=== PATIENT | male | born 1945 | race African-American/Black ===

== ENCOUNTER 2018-02-03 15:49 | Emergency (ER) | payer MEDICARE, MEDICAID ==
[~2018-02-03] VITALS: Ht 170.2 cm; Wt 93.0 kg
[~2018-02-03 15:49] MED LIST: ACET1TAB14 PO; ALBU90AE IH; ALLO100T PO; ASPI-1159 PO; CARV3.1242 PO; CLOP75TA33 PO; COLC0.6T66 PO; DIGO125T82 PO; FURO40TA5 PO; NITR0.4T SL; POTA-79 PO
[2018-02-03 16:27] VITALS: BP 155/103
== END 2018-02-03 19:30 | disposition left against medical advice (07) ==
LOC: ER 18:31
DX: M79.661 Pain in right lower leg (principal); G89.29 Other chronic pain
CPT/HCPCS: 99281